=== PATIENT | male | born 1965 | race Caucasian/White ===

== ENCOUNTER 2018-08-24 00:57 | Emergency (ER) | payer OTHER ==
[~2018-08-24] VITALS: Ht 170.2 cm; Wt 81.6 kg
[2018-08-24 01:00] VITALS: BP_SYST 110
--- NOTE | 2018-08-24 01:00 | NUR ---
Patient to ER bed 5 to gown for evaluation. Side rails up. Report given to Fili CABRERA.
--- NOTE | 2018-08-24 01:00 | NUR ---
Patient arrived to ED a/o x 4 with c/o intermitent chest pain x 5 days. Pain radiates substernaly to bilateral upper extremities and jaw. Denies recent trauma or cough. -SOB. +Nausea. Patient took pepto bismal and motrin with no relief.
--- NOTE | 2018-08-24 01:16 | NUR ---
ED MD Siegel at bedside for medical evaluation.
[2018-08-24] MEDS ORDERED: MAG HYDROX/AL HYDROX/SIMETH 30 ML, BELLADONNA ALKALOIDS/PHENOBARB 10 ML, LIDOCAINE VISC... PO ONE ×3 (02:00)
[2018-08-24 02:20] VITALS: BP_SYST 113
--- NOTE | 2018-08-24 02:20 | NUR ---
Patient given written and verbal discharge instructions and verbalizes understanding. ER MD discussed with patient the results and treatment provided. Patient in stable condition. ID arm band removed. Rx of Prilosec and motrin given. Patient educated on pain management and to follow up with PMD. Pain Scale 3/10 tolerable for patient. Opportunity for questions provided and answered. Medication side effect fact sheet provided.
== END 2018-08-24 02:20 | disposition home or self-care (01) ==
LOC: SED 00:57
DX: R07.89 Other chest pain (principal); K21.9 Gastro-esophageal reflux disease without esophagitis
CPT/HCPCS: 99283; J2001